=== PATIENT | female | born 1980 | race Caucasian/White ===

== ENCOUNTER → 2019-07-09 | Outpatient (CLI) | payer OTHER ==
[~2019-07-09] MED LIST: BUPR150T2 PO; CEFD300 PO; CLIN150 PO; CYCL10 PO; FAMO40 PO; HYDACE5325 PO; IBUP600 PO; LISHYD1012 PO; LISI20 PO; LISI5 PO; NAPR500 PO; Norco 5-325 Ta1 EACH PO; Nuvaring Vagin1 EACH VG; OXYACE5T PO; PRENZ PO; PROM25 PO; PROP60 PO; PROP80ER PO; Prednisone20 MG PO; Synthroid25 MCG PO; UNKNOWN ANTIBIOTIC
== END | disposition home or self-care (01) ==
LOC: LAB SHORT 18:57 → LAB 18:57
DX: J35.1 Hypertrophy of tonsils (principal)
CPT/HCPCS: 87081

== ENCOUNTER → 2019-08-02 | Outpatient (CLI) | payer OTHER ==
[2019-08-04 01:10] LABS: HBSAG SCREEN Negative (Negative); HEP B CORE AB, TOT Negative (Negative); HEP C VIRUS AB <0.1 (0.0-0.9); HIV SCREEN 4TH GENERATION WRFX Non Reactive (Non Reactive)
[2019-08-05 02:10] LABS: CHLAMYDIA TRACHOMATIS, NAA Negative (Negative); NEISSERIA GONORRHOEAE, NAA Negative (Negative)
== END ==
LOC: LAB 14:06 → LAB SHORT 14:06
PROVIDERS: Obstetrics & Gynecology
DX: Z20.2 Contact with and (suspected) exposure to infections with a predominantly sexual mode of transmission (principal)
CPT/HCPCS: 36415; 86592; 86695; 86696; 86704; 86708; 86803; 87340; 87389; 87491; 87591

== ENCOUNTER → 2021-05-10 | Outpatient (CLI) | payer OTHER ==
[2021-05-14 16:07] LABS: HPV 16 Negative (Negative); HPV 18 Negative (Negative); HPV OTHER HR TYPES Positive (Negative)
== END ==
LOC: LAB 16:08 → LAB SHORT 16:08
PROVIDERS: Obstetrics & Gynecology
DX: Z12.4 Encounter for screening for malignant neoplasm of cervix (principal)
CPT/HCPCS: 87624; 87625; G0123

== ENCOUNTER → 2021-07-30 | Outpatient (CLI) | payer OTHER | LOC: LAB SHORT 11:56 | DX: E03.8 Other specified hypothyroidism (principal) | CPT/HCPCS: 36415; 84443 ==